=== PATIENT | male | born 2000 | race Two or more races ===

== ENCOUNTER 2024-02-15 21:36 | Emergency (ER) | payer OTHER ==
[~2024-02-15] VITALS: Ht 188 cm; Wt 96.0 kg
[2024-02-15] MEDS: ACETAMINOPHEN 325 MG TAB PO ONE (22:15)
[2024-02-15] MEDS: ACETAMINOPHEN 650 mg PER 20.3 mL UD PO ONE (22:16)
[2024-02-15 22:59] LABS: Basophils # (auto) 0 10 ^3/uL (0-0.2); Basophils % (auto) 0.4 % (0.0-2.0); Eosinophils # (auto) 0 10 ^3/uL (0-0.8); Eosinophils % (auto) 0.1 % (0.0-7.0); Hematocrit 47.1 % (41.0-53.0); Lymphocytes # (auto) 0.5 10 ^3/uL (0.4-5.4); Lymphocytes % (auto) 6.3 % (10.0-50.0); Mean Corpuscular Hemoglobin 28.3 pg (28.0-32.0); Mean Corpuscular Volume 83.3 fL (80.0-100.0); Monocytes # (auto) 0.3 10 ^3/uL (0-1.3); Monocytes % (auto) 3.9 % (0.0-12.0); Neutrophils # (auto) 7.7 10 ^3/uL (1.6-8.6); Neutrophils % (auto) 89.3 % (37.0-80.0); Red Blood Cells 5.65 10^6/uL (4.5-5.90); Red Cell Distribution Width 13.4 % (11.8-14.3); White Blood Cell 8.6 10^3/uL (4.4-10.8)
[2024-02-15 23:14] LABS: Alanine Aminotransferase 19 U/L (7-40); Albumin 4.7 g/dL (3.2-4.8); Alkaline Phosphatase 79 U/L (46-116); Anion Gap 7 (5-15); Aspartate Aminotransferase 14 U/L (13-40); BUN/Creatinine Ratio 7.4 (10.0-20.0); Bilirubin, Total 0.9 mg/dL (0.2-1.0); Blood Urea Nitrogen 7 mg/dL (9-23); Calcium 9.8 mg/dL (8.7-10.4); Carbon Dioxide 25 mmol/L (20-30); Chloride 102 mmol/L (98-107); Glucose 116 mg/dL (74-106); Potassium 3.9 mmol/L (3.5-5.1); Sodium 134 mmol/L (136-145); Total Protein 7.6 g/dL (5.7-8.2)
[2024-02-15] MEDS: HYDROmorphone HCL 2 MG/ML VL/or syr IM ONE (23:31)
[2024-02-15] MEDS: KETOROLAC TROMETH 30 MG/ML 1ML VIAL IM ONE (23:45)
[2024-02-16 00:55] VITALS: BP 118/69; PULSE 76; RESP 16; TEMP 98.8; O2SAT 96
== END 2024-02-16 01:26 | disposition home or self-care (01) ==
LOC: ER 21:36
DX: R50.82 Postprocedural fever (principal); G89.18 Other acute postprocedural pain
CPT/HCPCS: 36415; 70360; 71045; 80053; 83605; 84484; 85025; 87040; 87077; 87186; 93005; 96372; 99285; J1170; J1885